=== PATIENT | female | born 1955 | race Caucasian/White ===

== ENCOUNTER 2016-05-03 14:18 | Emergency (ER) | payer OTHER ==
[2016-05-03] VITALS (8 sets, daily range): BP systolic 131–175; BP diastolic 69–94; PULSE 63–88; RESP 16–26; TEMP 98.1; O2SAT 97–100
[~2016-05-03] VITALS: Ht 147.3 cm; Wt 50.0 kg
--- NOTE | 2016-05-03 14:30 | PD ---
HPI Chief Complaint: Chest Pain Time Seen by Provider: 14:30 Travel History International Travel<30 days: No Contact w/Intl Traveler<30days: No Traveled to known affect area: No History of Present Illness HPI 60 year old female with PMH of COPD, hypertension, Brugada syndrome, implanted AICD 2012 presents to the ED for evaluation of 3 day history of intermittent, sharp left sided chest pain, radiating to the back, down the left arm and up to the left jaw. Associated with palpitations, shortness of breath, nausea and vomiting. Patient denies diaphoresis. Patient also complains of upper abdominal pain, episodic diarrhea. She denies fever, chills, melena, hematochezia. Denies dysuria, urinary urgency. Followed by Dr. Muse, cardiology. [facility] Social History Tobacco Use: Yes Allergies-Medications (Allergen,Severity, Reaction): Coded Allergies: Lyrica (Verified Allergy, Severe, Rash, 05/03/16) Tramadol (Verified Allergy, Severe, Rash, 05/03/16) Reported Meds & Prescriptions Reported Meds & Active Scripts Active Reported Ventolin Hfa 18 GM Inh (Albuterol Sulfate) 90 Mcg/Act Aer 2 Puff INH Q4H PRN Symbicort Inh (Budesonide/Formoterol Fumarate) 160-4.5 Mcg/Act Aero 2 Puff INH Q12HR Spiriva Handihaler (Tiotropium Inh) 18 Mcg Cap 18 Mcg INH DAILY 1 capsule = 18 mcg Requip (Ropinirole) 4 Mg Tab 4 Mg PO HS Hydroxyzine HCl 25 Mg Tab 25 Mg PO TID Amlodipine (Amlodipine Besylate) 2.5 Mg Tab 2.5 Mg PO DAILY Furosemide 20 Mg Tab 20 Mg PO DAILY Trazodone (Trazodone HCl) 50 Mg Tab 50 Mg PO HS Nortriptyline (Nortriptyline HCl) 25 Mg Cap 25 Mg PO HS Prednisone 10 Mg Tab 10 Mg PO DAILY Gabapentin 300 Mg Cap 300 Mg PO TID Lisinopril 10 Mg Tab 10 Mg PO DAILY Oxycodone-Acetaminophen 7.5-325 mg Tab 1 Tab PO Q6H PRN Review of Systems Except as stated in HPI: all other systems reviewed are Neg Physical Exam Narrative GENERAL: Well-nourished, well-developed thin female, some increased work of breathing. SKIN: Warm and dry. HEAD: Normocephalic. EYES: No scleral icterus. No injection or drainage. NECK: Supple, trachea midline. No JVD or lymphadenopathy. CARDIOVASCULAR: Regular rate and rhythm without murmurs, gallops, or rubs. 2+ DP and radial pulses bilaterally. RESPIRATORY: Breath sounds equal bilaterally. No accessory muscle use. GASTROINTESTINAL: Abdomen soft, non-tender, nondistended. Active bowel sounds. MUSCULOSKELETAL: No cyanosis, or edema. BACK: Nontender without obvious deformity. No CVA tenderness. Data Data Last Documented VS Vital Signs Date Time Temp Pulse Resp B/P Pulse Ox O2 Delivery O2 Flow Rate FiO2 05/03/16 19:28 64 20 174/80 99 05/03/16 17:47 Nasal Cannula 2 05/03/16 14:20 98.1 Orders Electrocardiogram (05/03/16 ) Basic Metabolic Panel (Bmp) (05/03/16 14:39) Ckmb (Isoenzyme) Profile (05/03/16 14:39) Complete Blood Count With Diff (05/03/16 14:39) D-Dimer (05/03/16 14:39) Magnesium (Mg) (05/03/16 14:39) Prothrombin Time / Inr (Pt) (05/03/16 14:39) Act Partial Throm Time (Ptt) (05/03/16 14:39) Troponin I (05/03/16 14:39) Chest, Single Ap (05/03/16 14:39) Ecg Monitoring (05/03/16 14:39) Bilateral Bp Monitoring (05/03/16 14:39) Iv Access Insert/Monitor (05/03/16 14:39) Oximetry (05/03/16 14:39) Aspirin Chew (Aspirin Chew) (05/03/16 14:45) Sodium Chloride 0.9% Flush (Ns Flush) (05/03/16 14:45) Nitroglycerin Sl (Nitrostat Sl) (05/03/16 14:45) Cta Thor Abd Aorta W Iv C W3d (05/03/16 ) Morphine Inj (Morphine Inj) (05/03/16 15:45) Iohexol 350 Inj (Omnipaque 350 Inj) (05/03/16 16:10) Ventilation & Perfusion Scan (05/03/16 16:58) Morphine Inj (Morphine Inj) (05/03/16 17:30) Admit Order (Ed Use Only) (05/03/16 19:41) Place In Observation (05/03/16 19:41) Activity Bed Rest With Brp (05/03/16 19:41) Vital Signs (Adult) Q4H (05/03/16 19:41) Cardiac Rhythm .As Directed (05/03/16:41) ^ Notify Dr: Other .PRN (05/03/16:41) ^ Notify Dr. Parameters (05/03/16:41) Resp Oxygen Nasal Cannula (05/03/16 ) Ckmb (Isoenzyme) Profile (05/03/16:41) Ckmb (Isoenzyme) Profile (05/03/16 22:41) Troponin I (05/03/16:41) Troponin I (05/03/16 22:41) Electrocardiogram (05/03/16:41) Electrocardiogram (05/03/16 22:41) ^ Obtain (05/03/16:41) Sodium Chloride 0.9% Flush (Ns Flush) (05/03/16 19:45) Sodium Chloride 0.9% Flush (Ns Flush) (05/03/16 21:00) Ux Developer Designer / Telemetry [email or web address].[email or web address] (05/03/16 19:41) Ibuprofen (Motrin) (05/03/16 20:45) Labs Laboratory Tests Test 05/03/16 15:20 White Blood Count 7.3 TH/MM3 Red Blood Count 4.58 MIL/MM3 Hemoglobin 13.1 GM/DL Hematocrit 38.9 % Mean Corpuscular Volume 84.9 FL Mean Corpuscular Hemoglobin 28.7 PG Mean Corpuscular Hemoglobin 33.8 % Concent Red Cell Distribution Width 13.0 % Platelet Count 254 TH/MM3 Mean Platelet Volume 9.6 FL Neutrophils (%) (Auto) 47.8 % Lymphocytes (%) (Auto) 45.0 % Monocytes (%) (Auto) 5.0 % Eosinophils (%) (Auto) 1.6 % Basophils (%) (Auto) 0.6 % Neutrophils # (Auto) 3.5 TH/MM3 Lymphocytes # (Auto) 3.3 TH/MM3 Monocytes # (Auto) 0.4 TH/MM3 Eosinophils # (Auto) 0.1 TH/MM3 Basophils # (Auto) 0.0 TH/MM3 CBC Comment DIFF FINAL Differential Comment Prothrombin Time 10.5 SEC Prothromb Time International 1.0 RATIO Ratio Activated Partial 25.7 SEC Thromboplast Time D-Dimer Quantitative (PE/DVT) 0.61 MG/L FEU Sodium Level 139 MEQ/L Potassium Level 3.9 MEQ/L Chloride Level 102 MEQ/L Carbon Dioxide Level 30.3 MEQ/L Anion Gap 7 MEQ/L Blood Urea Nitrogen 10 MG/DL Creatinine 0.88 MG/DL Estimat Glomerular Filtration 66 ML/MIN Rate Random Glucose 111 MG/DL Calcium Level 9.2 MG/DL Magnesium Level 2.1 MG/DL Total Creatine Kinase 83 U/L Troponin I LESS THAN 0.02 NG/ML MDM Medical Decision Making Medical Screen Exam Complete: Yes Emergency Medical Condition: Yes Interpretation(s) EKG rate 76, sinus rhythm. Right bundle ethan block. ST elevations with coving in V1, V2. No reciprocal changes. Reviewed by Dr. Mehta. Differential Diagnosis ACS versus PE versus aortic dissection versus pneumonia versus anemia versus electrolyte abnormality versus chest pain versus other Narrative Course 60 year old female with PMH of Brugada syndrome, implanted AICD 2012 presents to the ED for evaluation of 3 day history of intermittent, sharp left sided chest pain, radiating to the back, down the left arm and up to the left jaw. Associated with palpitations, shortness of breath, nausea and vomiting. Patient denies diaphoresis. Patient also complains of upper abdominal pain, episodic diarrhea. She denies fever, chills, melena, hematochezia, dysuria, urinary urgency. Followed by Dr. Muse, cardiology. Vitals reviewed. The patient is hypertensive on presentation. She does appear short of breath, though sats remain 95-100%. Physical exam reveals a petite female, some increased work of breathing. Chest is clear to auscultation bilaterally. Abdomen soft, mildly tender in the epigastric area. Equal pulses in the extremities. No lower extremity edema. No CVA tenderness. IV was established. Patient was placed on continuous monitoring, administered ASA, nitroglycerin. No improvement of symptoms. Administered 2 mg morphine. No nausea or vomiting during the course of her workup. CBC: WBC 7.3. Hemoglobin 13.1. INR 1.0. D-dimer 0.61. CMP: Unremarkable. Cardiac enzymes negative. Chest x-ray, pacer lead overlies the right ventricle, no focal, consolidation or significant effusion per radiology read. CTA thoracoabdominal: Negative for thoracic or abdominal aneurysm or dissection per radiology read. VQ scan: Low probability PE per radiology read. Dr. Mehta also evaluated the patient and we discussed her history, workup and plan of care. I spoke with registration. The patient does have several previous visits have not been merged. They can be accessed with . Discussed plan with the patient who is agreeable to the plan of care. Review of the record reveals no previous cardiac workup. We'll admit the patient to the chest pain center for serial cardiac enzymes and EKGs. Please see their notes for disposition. Dr. Mehta spoke with the patient, patient changed her mind and is asking to be discharged. She states that she will follow up with her oven operator. Please see Dr. Mehta's note for more details. Rebecca Quevedo May 03, 2016 14:30
[2016-05-03] MEDS ORDERED: SODIUM CHLORIDE 0.9% FLUSH 5 ML FLUSH IVF PRN ×2 (14:45→19:45)
[2016-05-03] MEDS ORDERED: ASPIRIN 81 MG CHEW TAB PO ONE (14:45)
[2016-05-03] MEDS: NITROGLYCERIN 0.4 MG SL 25 TABS/BTL SL SCH ×2 (14:52→14:57)
[2016-05-03] MEDS ORDERED: PRED10 PO (15:02)
[2016-05-03] MEDS ORDERED: HYDR-3133 PO (15:02)
[2016-05-03] MEDS ORDERED: TRAZ50TA12 PO (15:02)
[2016-05-03] MEDS ORDERED: AMLO2.5T PO (15:02)
[2016-05-03] MEDS ORDERED: NORT25CA PO (15:02)
[2016-05-03] MEDS ORDERED: FURO20TA PO (15:02)
[2016-05-03] MEDS ORDERED: SPIRCAP INH (15:02)
[2016-05-03] MEDS ORDERED: GABA300C5 PO (15:02)
[2016-05-03] MEDS ORDERED: SYMB160A INH (15:02)
[2016-05-03] MEDS ORDERED: LISI10TA3 PO (15:02)
[2016-05-03] MEDS ORDERED: OXYC1TAB35 PO (15:02)
[2016-05-03] MEDS ORDERED: REQU4TAB3 PO (15:02)
[2016-05-03] MEDS ORDERED: VENTAER INH (15:03)
[2016-05-03 15:38] LABS: AUTOMATED NEUTROPHIL # 3.5 TH/MM3 (1.8-7.7); BASOPHIL % 0.6 % (0.0-2.0); EOSINOPHIL # 0.1 TH/MM3 (0-0.4); EOSINOPHIL % 1.6 % (0.0-4.0); HEMATOCRIT 38.9 % (35.0-46.0); HEMO FLAGS DIFF FINAL; LYMPHOCYTE # 3.3 TH/MM3 (1.0-4.8); MEAN CELL VOLUME 84.9 FL (80.0-100.0); MEAN CORPUSCULAR HEMOGLOBIN 28.7 PG (27.0-34.0); MEAN CORPUSCULAR HGB CONC 33.8 % (32.0-36.0); NEUT % 47.8 % (16.0-70.0); PLATELET COUNT 254 TH/MM3 (150-450); RED BLOOD COUNT 4.58 MIL/MM3 (4.00-5.30); WHITE BLOOD COUNT 7.3 TH/MM3 (4.0-11.0)
[2016-05-03] MEDS ORDERED: MORPHINE SULFATE 4 MG/ML INJ IV PUSH ONE ×2 (15:45→17:30)
[2016-05-03 15:54] LABS: ANION GAP 7 MEQ/L (5-15); BICARBONATE 30.3 MEQ/L (21.0-32.0); BLOOD UREA NITROGEN 10 MG/DL (7-18); CHLORIDE 102 MEQ/L (98-107); GLOMERULAR FILTRATION RATE 66 ML/MIN (>89); MAGNESIUM 2.1 MG/DL (1.5-2.5); POTASSIUM 3.9 MEQ/L (3.5-5.1); SODIUM (NA) 139 MEQ/L (136-145)
[2016-05-03 15:56] LABS: APTT (PATIENT) 25.7 SEC (24.3-30.1); PROTHROMBIN TIME - PATIENT 10.5 SEC (9.8-11.6)
[2016-05-03 16:01] LABS: CREATINE KINASE 83 U/L (26-192)
[2016-05-03] MEDS ORDERED: IOHEXOL 350 MG/ML 10 ML VIAL (for RAD DIAG) IV ONE (16:10)
--- NOTE | 2016-05-03 16:15 | RADRPT ---
EXAM DATE/TIME: 05/03/2016 14:53 [facility] COMPARISON: No previous studies available for comparison. INDICATIONS : Chest Pain MEDICAL HISTORY : Emphysema. Chronic obstructive pulmonary disease. SURGICAL HISTORY : Pacemaker. ENCOUNTER: Initial ACUITY: 1 day PAIN SCORE: 5/10 LOCATION: Bilateral chest FINDINGS: A single view of the chest demonstrates pacer lead tip projected over right ventricle. No focal conso lidation or significant effusion. No pneumothorax. Heart size normal. CONCLUSION: 1. Pacer lead overlies right ventricle. No focal consolidation or significant effusion. Jose Alberto MD on May 03, 2016 at 16:13 Board Certified Radiologist. This report was verified electronically.
--- NOTE | 2016-05-03 16:49 | RADRPT ---
EXAM DATE/TIME: 05/03/2016 16:03 [facility] COMPARISON: No previous studies available for comparison. INDICATIONS : Sharp chest pain radiating to back for 3 days; evaluate for aortic dissection. IV CONTRAST: 75 cc Omnipaque 350 (iohexol) IV RADIATION DOSE: 3.57 CTDIvol (mGy) MEDICAL HISTORY : Cerebrovascular disease. Hypertension. Carcinoma, breast.Brugada Syndrome SURGICAL HISTORY : Pacemaker. Cholecystectomy.Mastectomy ENCOUNTER: Initial ACUITY: 3 days PAIN SCALE: 5/10 LOCATION: chest TECHNIQUE: Volumetric scanning was performed using a multi-row detector CT scanner. The data was post processed with a variety of visualization algorithms including full volume maximum intensity projection, multi -planar sliding thin slab reformation, curved planar reformation, and surface rendering techniques. Using automated exposure control and adjustment of the mA and/or kV according to patient size, radiat ion dose was kept as low as reasonably achievable to obtain optimal diagnostic quality images. FINDINGS: Examination negative for aortic dissection or aneurysm. There is mild atherosclerosis in the aorta an d branches. There is mild emphysema in the upper lungs. No consolidation. No effusion. No adenopathy. Pacer lead tip in right ventricle. No acute findings identified within the abdomen pelvis. There is mild constipation. CONCLUSION: 1. Negative for thoracic or abdominal dissection or aneurysm. 2. Mild constipation. Mild emphysema. No acute findings. Pacer lead tip in right ventricle. Jose Alberto MD on May 03, 2016 at 16:42 Board Certified Radiologist. This report was verified electronically.
--- NOTE | 2016-05-03 19:17 | RADRPT ---
EXAM DATE/TIME: 05/03/2016 18:29 [facility] COMPARISON: No previous studies available for comparison. INDICATIONS : Shortness of breath and chest pain for 3 days. DOSE: 8.1 mCi Tc99m MAA IV 1.7 mCi Tc99m DTPA aerosol MEDICAL HISTORY : Carcinoma, breast. Hypertension. SURGICAL HISTORY : Cholecystectomy. Mastectomy, right. Pacemaker. ENCOUNTER: Initial ACUITY: 3 days PAIN SCALE: 2/10 LOCATION: Bilateral chest TECHNIQUE: Following five minutes of tidal breathing of DTPA aerosol, planar images of the lungs were performed in eight projections. The patient was then injected with MAA, and eight-view perfusion scan was perf ormed. FINDINGS: There is a heterogeneous pattern of aerosol delivery to the periphery of both lungs. No focal ventil atory defects are seen. The perfusion lung scan demonstrates a homogenous pattern of uptake in both lungs. No segmental or s ubsegmental defects are seen. CONCLUSION: 1. Low probability for pulmonary embolus. Air trapping in the lungs. Jose Alberto MD on May 03, 2016 at 19:13 Board Certified Radiologist. This report was verified electronically.
--- NOTE | 2016-05-03 20:08 | PD ---
Physical Exam Narrative I, Dr. Mehta, have reviewed the advance practice practitioner's documentation and am in agreement, met with the patient face to face, made the diagnosis, and the medical decision making was done by me. *My assessment and Findings: 60yo F here with left sided chest pain with sob. Pt states chest pain radiates to the back and had new tingling in left leg. History was concerning for aortic dissection so CTA was completed which was negative for thoracic or abdominal dissection or aneurysm. Pt has Brugada syndrome s/p AICD. D-dimer was elevated so VQ scan was completed and showed low probability for pulmonary embolus. Troponin is negative. Pt given aspirin , morphine for chest pain. Pt will be admitted to chest pain center for serial EKG and cardiac enzyme to r/o ACS. Pt reevaluated at bedside and states that she does not want to stay any more. Pt changed her mind. Pt states she saw her escrow officer last in February and will call him tomorrow to let him know that she was in the ED. Pt's daughter will be with her and bring her home. She will bring her back immediately if anything changes. Return precautions given. Data Data Last Documented VS Vital Signs Date Time Temp Pulse Resp B/P Pulse Ox O2 Delivery O2 Flow Rate FiO2 05/03/16 19:28 64 20 174/80 99 05/03/16 17:47 Nasal Cannula 2 05/03/16 14:20 98.1 Orders Electrocardiogram (05/03/16 ) Basic Metabolic Panel (Bmp) (05/03/16 14:39) Ckmb (Isoenzyme) Profile (05/03/16 14:39) Complete Blood Count With Diff (05/03/16 14:39) D-Dimer (05/03/16 14:39) Magnesium (Mg) (05/03/16 14:39) Prothrombin Time / Inr (Pt) (05/03/16 14:39) Act Partial Throm Time (Ptt) (05/03/16 14:39) Troponin I (05/03/16 14:39) Chest, Single Ap (05/03/16 14:39) Ecg Monitoring (05/03/16 14:39) Bilateral Bp Monitoring (05/03/16 14:39) Iv Access Insert/Monitor (05/03/16 14:39) Oximetry (05/03/16 14:39) Aspirin Chew (Aspirin Chew) (05/03/16 14:45) Sodium Chloride 0.9% Flush (Ns Flush) (05/03/16 14:45) Nitroglycerin Sl (Nitrostat Sl) (05/03/16 14:45) Cta Thor Abd Aorta W Iv C W3d (05/03/16 ) Morphine Inj (Morphine Inj) (05/03/16 15:45) Iohexol 350 Inj (Omnipaque 350 Inj) (05/03/16 16:10) Ventilation & Perfusion Scan (05/03/16 16:58) Morphine Inj (Morphine Inj) (05/03/16 17:30) Resp Oxygen Nasal Cannula (05/03/16 ) Ckmb (Isoenzyme) Profile (05/03/16 19:41) Troponin I (05/03/16 19:41) Electrocardiogram (05/03/16 19:41) Ibuprofen (Motrin) (05/03/16 20:45) Labs Laboratory Tests Test 05/03/16 05/03/16 15:20 20:15 White Blood Count 7.3 TH/MM3 Red Blood Count 4.58 MIL/MM3 Hemoglobin 13.1 GM/DL Hematocrit 38.9 % Mean Corpuscular Volume 84.9 FL Mean Corpuscular Hemoglobin 28.7 PG Mean Corpuscular Hemoglobin 33.8 % Concent Red Cell Distribution Width 13.0 % Platelet Count 254 TH/MM3 Mean Platelet Volume 9.6 FL Neutrophils (%) (Auto) 47.8 % Lymphocytes (%) (Auto) 45.0 % Monocytes (%) (Auto) 5.0 % Eosinophils (%) (Auto) 1.6 % Basophils (%) (Auto) 0.6 % Neutrophils # (Auto) 3.5 TH/MM3 Lymphocytes # (Auto) 3.3 TH/MM3 Monocytes # (Auto) 0.4 TH/MM3 Eosinophils # (Auto) 0.1 TH/MM3 Basophils # (Auto) 0.0 TH/MM3 CBC Comment DIFF FINAL Differential Comment Prothrombin Time 10.5 SEC Prothromb Time International 1.0 RATIO Ratio Activated Partial 25.7 SEC Thromboplast Time D-Dimer Quantitative (PE/DVT) 0.61 MG/L FEU Sodium Level 139 MEQ/L Potassium Level 3.9 MEQ/L Chloride Level 102 MEQ/L Carbon Dioxide Level 30.3 MEQ/L Anion Gap 7 MEQ/L Blood Urea Nitrogen 10 MG/DL Creatinine 0.88 MG/DL Estimat Glomerular Filtration 66 ML/MIN Rate Random Glucose 111 MG/DL Calcium Level 9.2 MG/DL Magnesium Level 2.1 MG/DL Total Creatine Kinase 83 U/L 58 U/L Troponin I LESS THAN 0.02 LESS THAN 0.02 NG/ML NG/ML MDM Supervised Visit with MACARIO: Yes Interpretation(s) EKG: NSR 76bpm. [place] shaped ST elevation V1, V2. Pt has known brugada. No ST segment depression or reciprocal changes. Diagnosis Primary Impression: Chest pain Qualified Code: R07.9 - Chest pain, unspecified type Patient Instructions: General Instructions Departure Forms: Tests/Procedures Additional Instruction: Please return to the ED if you have chest pain, sob or any other concerning symptoms. Please call your escrow officer tomorrow to inform him you were in the ED. Med/Other Pt SpecificInfo: No Change to Meds Disposition: DISCHARGE HOME Condition: Stable Latrice Mehta DO May 03, 2016 20:08 Qualified Code: R07.9 - Chest pain, unspecified type Patient Instructions: General Instructions Departure Forms: Tests/Procedures Additional Instruction: Please return to the ED if you have chest pain, sob or any other concerning symptoms. Please call your escrow officer tomorrow to inform him you were in the ED. Med/Other Pt SpecificInfo: No Change to Meds Disposition: 01 DISCHARGE HOME Condition: Stable Latrice Mehta DO May 03, 2016 20:08
[2016-05-03] MEDS ORDERED: IBUPROFEN 600 MG TAB PO ONE (20:45)
[2016-05-03] MEDS ORDERED: SODIUM CHLORIDE 0.9% FLUSH 5 ML FLUSH IVF SCH (21:00)
[2016-05-03 21:30] LABS: CREATINE KINASE 58 U/L (26-192)
--- NOTE | 2016-05-04 12:31 | EKG ---
Date Performed: 05/03/2016 Time Performed: 14:39:50 PTAGE: 60 years EKG: Sinus rhythm RIGHT BUNDLE BRANCH BLOCK LEFT ANTERIOR FASCICULAR BLOCK POSSIBLE SEPTAL MYOCARDIAL INFARCTION Leads V1 and V2 are atypical for standard Right bundle branch block, would consider Type-1 Brugada NO PREVIOUS TRACING DOCTOR: Stephen Bansal Interpretating Date/Time 05/04/2016 12:29:27
--- NOTE | 2016-05-04 12:40 | EKG ---
Date Performed: 05/03/2016 Time Performed: 20:15:00 PTAGE: 60 years EKG: SINUS BRADYCARDIA RIGHT BUNDLE BRANCH BLOCK LEFT ANTERIOR FASCICULAR BLOCK POSSIBLE SEPTAL MYOCARDIAL INFARCTION Leads V1 and V2 are atypical for standard Right bundle branch block, would cons ider Type-1 Brugada ABNORMAL ECG PREVIOUS TRACING : 05/03/2016 14.39 DOCTOR: Stephen Bansal Interpretating Date/Time 05/04/2016 12:38:49
== END 2016-05-03 22:12 | disposition home or self-care (01) ==
LOC: NEPA 14:18
DX: R07.9 Chest pain, unspecified (principal); R94.31 Abnormal electrocardiogram [ECG] [EKG]; J44.9 Chronic obstructive pulmonary disease, unspecified; Z95.810 Presence of automatic (implantable) cardiac defibrillator; I10 Essential (primary) hypertension; Z72.0 Tobacco use
CPT/HCPCS: 71010; 71275; 74174; 78582; 80048; 82550; 83735; 84484; 85025; 85379; 85610; 85730; 93005; 96374; 96376; 99285; A9540; A9567; J2270; Q9967

== ENCOUNTER 2016-10-10 23:55 | Observation (INO) | payer OTHER ==
[~2016-10-10] VITALS: Ht 147.3 cm; Wt 43.0 kg
[~2016-10-10 23:55] MED LIST: AMLO2.5T PO; FURO20TA PO; GABA300C5 PO; HYDR-3133 PO; LISI10TA3 PO; NORT25CA PO; OXYC1TAB35 PO; PRED10 PO; REQU4TAB3 PO; SPIRCAP INH; SYMB160A INH; TRAZ50TA12 PO; VENTAER INH
[2016-10-10 23:57] VITALS: BP 174/78; PULSE 78; RESP 18; TEMP 98.1; O2SAT 99
[2016-10-11] VITALS (13 sets, daily range): BP systolic 95–133; BP diastolic 50–63; PULSE 49–79; RESP 16–18; TEMP 98–98.5; O2SAT 98–100
[2016-10-11] MEDS ORDERED: MORPHINE SULFATE 4 MG/ML INJ IV PUSH ONE
[2016-10-11] MEDS ORDERED: SODIUM CHLORIDE 0.9% FLUSH 10 ML FLUSH IVF PRN
[2016-10-11] MEDS ORDERED: ASPIRIN 325 MG TAB PO ONE
[2016-10-11] MEDS ORDERED: ASPI81CH3 CHEW (00:06)
[2016-10-11] MEDS ORDERED: ONDANSETRON HCL 4 MG/2 ML VIAL ONE (00:08)
[2016-10-11] MEDS: NITROGLYCERIN 0.4 MG SL 25 TABS/BTL SL SCH ×3 (00:10→00:18)
[2016-10-11 00:36] LABS: AUTOMATED NEUTROPHIL # 4.5 TH/MM3 (1.8-7.7); BASOPHIL % 0.6 % (0.0-2.0); EOSINOPHIL # 0.1 TH/MM3 (0-0.4); EOSINOPHIL % 1.8 % (0.0-4.0); HEMATOCRIT 37.8 % (35.0-46.0); HEMO FLAGS DIFF FINAL; LYMPH % 31.1 % (9.0-44.0); LYMPHOCYTE # 2.3 TH/MM3 (1.0-4.8); MEAN CELL VOLUME 86.5 FL (80.0-100.0); MEAN CORPUSCULAR HEMOGLOBIN 28.8 PG (27.0-34.0); MEAN CORPUSCULAR HGB CONC 33.3 % (32.0-36.0); MONO % 5.2 % (0.0-8.0); NEUT % 61.3 % (16.0-70.0); PLATELET COUNT 226 TH/MM3 (150-450); RED BLOOD COUNT 4.37 MIL/MM3 (4.00-5.30); RED CELL DISTRIBUTION WIDTH 13.5 % (11.6-17.2); WHITE BLOOD COUNT 7.4 TH/MM3 (4.0-11.0)
[2016-10-11 00:39] LABS: APTT (PATIENT) 25.2 SEC (24.3-30.1); PROTHROMBIN TIME - PATIENT 10.6 SEC (9.8-11.6)
[2016-10-11 01:03] LABS: ANION GAP 8 MEQ/L (5-15); BICARBONATE 29.2 MEQ/L (21.0-32.0); BLOOD UREA NITROGEN 11 MG/DL (7-18); CHLORIDE 106 MEQ/L (98-107); GLOMERULAR FILTRATION RATE 68 ML/MIN (>89); MAGNESIUM 1.9 MG/DL (1.5-2.5); POTASSIUM 3.5 MEQ/L (3.5-5.1); SODIUM (NA) 143 MEQ/L (136-145)
--- NOTE | 2016-10-11 01:06 | RADRPT ---
EXAM DATE/TIME: 10/11/2016 00:16 [facility] COMPARISON: CHEST SINGLE AP, May 03, 2016, 14:53. INDICATIONS : Chest pain and shortness of breath. MEDICAL HISTORY : Carcinoma, breast. Hypertension Chronic obstructive pulmonary disease. SURGICAL HISTORY : Pacemaker. ENCOUNTER: Initial ACUITY: 1 day PAIN SCORE: 10/10 LOCATION: Bilateral chest FINDINGS: Pacemaker device is noted with control pack over the left chest. Lungs are focally clear. No pleural effusion suspected. Cardiomediastinal contours are stable and satisfactory. CONCLUSION: No acute disease Ambrocio Luther MD on October 11, 2016 at 1:04 Board Certified Radiologist. This report was verified electronically.
[2016-10-11 01:16] LABS: CREATINE KINASE 68 U/L (26-192)
--- NOTE | 2016-10-11 01:41 | PD ---
HPI Chief Complaint: Chest Pain Time Seen by Provider: 23:58 Travel History International Travel<30 days: No Contact w/Intl Traveler<30days: No Traveled to known affect area: No History of Present Illness HPI 61-year-old female complains of chest pain intermittently for about 16 hours. This started at 4 AM yesterday. She states it's a 10 over 10. She reports she has a history of Brugada syndrome. She reports her father had a history of coronary artery disease. The patient smokes. She has hypertension. She has a history of cardiac catheterization and reports she has a stent. Location retrocardiac. There is radiation to the back. PFSH Past Medical History Arthritis: Yes (RA) Cancer: Yes (BREAST) Cardiac Catheterization: Yes Chest Pain: Yes Cerebrovascular Accident: Yes (TIA) Diminished Hearing: No Hypertension: Yes Implanted Vascular Access Dvce: Yes ([employer], MODEL [id number]) Tetanus Vaccination: Unknown Influenza Vaccination: Yes Past Surgical History Cardiac Surgery: Yes (PACEMAKER) Cholecystectomy: Yes Mastectomy: Yes (RIGHT) Social History Alcohol Use: No Tobacco Use: Yes Substance Use: No Allergies-Medications (Allergen,Severity, Reaction): Coded Allergies: Lyrica (Verified Allergy, Severe, Rash, 10/10/16) Tramadol (Verified Allergy, Severe, Rash, 10/10/16) Reported Meds & Prescriptions Reported Meds & Active Scripts Active Reported Aspirin 81 Low Dose (Aspirin) 81 Mg Chew 81 Mg CHEW DAILY Ventolin Hfa 18 GM Inh (Albuterol Sulfate) 90 Mcg/Act Aer 2 Puff INH Q4H PRN Symbicort Inh (Budesonide/Formoterol Fumarate) 160-4.5 Mcg/Act Aero 2 Puff INH Q12HR Spiriva Handihaler (Tiotropium Inh) 18 Mcg Cap 18 Mcg INH DAILY 1 capsule = 18 mcg Requip (Ropinirole) 4 Mg Tab 4 Mg PO HS Hydroxyzine HCl 25 Mg Tab 25 Mg PO TID Amlodipine (Amlodipine Besylate) 2.5 Mg Tab 2.5 Mg PO DAILY Trazodone (Trazodone HCl) 50 Mg Tab 50 Mg PO HS Nortriptyline (Nortriptyline HCl) 25 Mg Cap 25 Mg PO HS Gabapentin 300 Mg Cap 300 Mg PO TID Lisinopril 10 Mg Tab 10 Mg PO DAILY Oxycodone-Acetaminophen 7.5-325 mg Tab 1 Tab PO Q6H PRN Review of Systems Except as stated in HPI: all other systems reviewed are Neg General / Constitutional: No: Fever Physical Exam Narrative GENERAL: 61-year-old female mild distress secondary to pain and/or anxiety SKIN: Focused skin assessment warm/dry. HEAD: Atraumatic. Normocephalic. EYES: Pupils equal and round. No scleral icterus. No injection or drainage. ENT: No nasal bleeding or discharge. Mucous membranes pink and moist. NECK: Trachea midline. No JVD. CARDIOVASCULAR: Regular rate and rhythm. No murmur appreciated. RESPIRATORY: No accessory muscle use. Clear to auscultation. Breath sounds equal bilaterally. GASTROINTESTINAL: Abdomen soft, non-tender, nondistended. Hepatic and splenic margins not palpable. MUSCULOSKELETAL: No obvious deformities. No clubbing. No cyanosis. No edema. NEUROLOGICAL: Awake and alert. No obvious cranial nerve deficits. Motor grossly within normal limits. Normal speech. PSYCHIATRIC: Appropriate mood and affect; insight and judgment normal. Data Data Last Documented VS Vital Signs Date Time Temp Pulse Resp B/P Pulse Ox O2 Delivery O2 Flow Rate FiO2 10/11/16 02:00 64 16 113/57 99 Nasal Cannula 2 10/10/16 23:57 98.1 Vital signs reviewed Orders Electrocardiogram (10/10/16 23:58) Basic Metabolic Panel (Bmp) (10/10/16 23:58) Ckmb (Isoenzyme) Profile (10/10/16 23:58) Complete Blood Count With Diff (10/10/16 23:58) Magnesium (Mg) (10/10/16 23:58) Prothrombin Time / Inr (Pt) (10/10/16 23:58) Act Partial Throm Time (Ptt) (10/10/16 23:58) Troponin I (10/10/16 23:58) Chest, Single Ap (10/10/16 23:58) Ecg Monitoring (10/10/16 23:58) Bilateral Bp Monitoring (10/10/16 23:58) Iv Access Insert/Monitor (10/10/16 23:58) Oximetry (10/10/16 23:58) Oxygen Administration (10/10/16 23:58) Aspirin (Aspirin) (10/11/16 00:00) Morphine Inj (Morphine Inj) (10/11/16 00:00) Sodium Chloride 0.9% Flush (Ns Flush) (10/11/16 00:00) Nitroglycerin Sl (Nitrostat Sl) (10/11/16 00:00) Sodium Chlorid 0.9% 500 Ml Inj (Ns 500 M (10/11/16 00:00) Ondansetron Inj (Zofran Inj) (10/11/16 00:08) Ondansetron Odt (Zofran Odt) (10/11/16 01:45) Ondansetron Inj (Zofran Inj) (10/11/16 02:00) Metoprolol Tartrate (Lopressor) (10/11/16 02:00) Activity Bed Rest With Brp (10/11/16 02:29) Vital Signs (Adult) Q4H (10/11/16 02:29) Cardiac Rhythm .As Directed (10/11/16 02:29) Notify Dr: Other .PRN (10/11/16 02:29) Notify DrTino Parameters (10/11/16 02:29) Resp Oxygen Nasal Cannula (10/11/16 ) Ckmb (Isoenzyme) Profile (10/11/16 02:29) Ckmb (Isoenzyme) Profile (10/11/16 05:29) Troponin I (10/11/16 02:29) Troponin I (10/11/16 05:29) Electrocardiogram (10/11/16 02:29) Electrocardiogram (10/11/16 05:29) ^ Obtain (10/11/16 02:29) Sodium Chloride 0.9% Flush (Ns Flush) (10/11/16 02:30) Sodium Chloride 0.9% Flush (Ns Flush) (10/11/16 09:00) Acetaminophen (Tylenol) (10/11/16 02:30) Acetamin-Hydrocod 325-7.5 Mg ([place] 7.5 (10/11/16 02:30) Morphine Inj (Morphine Inj) (10/11/16 02:30) Nitroglycerin Sl (Nitrostat Sl) (10/11/16 02:30) Aspirin Chew (Aspirin Chew) (10/11/16 02:30) Aspirin (Aspirin) (10/11/16 09:00) Temazepam (Restoril) (10/11/16 02:30) Alprazolam (Xanax) (10/11/16 02:30) Variety Saw Operator / Telemetry BARBER.Q8H (10/11/16 02:29) Admit Order (Ed Use Only) (10/11/16 02:29) Labs Laboratory Tests Test 10/11/16 00:00 White Blood Count 7.4 TH/MM3 Red Blood Count 4.37 MIL/MM3 Hemoglobin 12.6 GM/DL Hematocrit 37.8 % Mean Corpuscular Volume 86.5 FL Mean Corpuscular Hemoglobin 28.8 PG Mean Corpuscular Hemoglobin 33.3 % Concent Red Cell Distribution Width 13.5 % Platelet Count 226 TH/MM3 Mean Platelet Volume 9.8 FL Neutrophils (%) (Auto) 61.3 % Lymphocytes (%) (Auto) 31.1 % Monocytes (%) (Auto) 5.2 % Eosinophils (%) (Auto) 1.8 % Basophils (%) (Auto) 0.6 % Neutrophils # (Auto) 4.5 TH/MM3 Lymphocytes # (Auto) 2.3 TH/MM3 Monocytes # (Auto) 0.4 TH/MM3 Eosinophils # (Auto) 0.1 TH/MM3 Basophils # (Auto) 0.0 TH/MM3 CBC Comment DIFF FINAL Differential Comment Prothrombin Time 10.6 SEC Prothromb Time International 1.0 RATIO Ratio Activated Partial 25.2 SEC Thromboplast Time Sodium Level 143 MEQ/L Potassium Level 3.5 MEQ/L Chloride Level 106 MEQ/L Carbon Dioxide Level 29.2 MEQ/L Anion Gap 8 MEQ/L Blood Urea Nitrogen 11 MG/DL Creatinine 0.85 MG/DL Estimat Glomerular Filtration 68 ML/MIN Rate Random Glucose 218 MG/DL Calcium Level 8.5 MG/DL Magnesium Level 1.9 MG/DL Total Creatine Kinase 68 U/L Troponin I LESS THAN 0.02 NG/ML MDM Medical Decision Making Medical Screen Exam Complete: Yes Emergency Medical Condition: Yes Medical Record Reviewed: Yes Differential Diagnosis NSTEMI, unstable angina, coronary vasospasm, PE, PTX, aortic dissection, pericarditis, myocarditis, endocarditis, PNA, esophageal disease, aneurysm, musculoskeletal etiologies, anxiety, cocaine/sympathomimetic abuse Narrative Course CBC & BMP Diagram 10/11/16 00:00 EKG reveals a sinus rhythm with ST elevations in V1 and V2 morphology is consistent with a Brugada type I syndrome Troponin is less than 0.02 Repeat troponin is less than 0.02 In this scenario it is considered quite unlikely that the patient actually has occlusive coronary disease. Review of prior EKGs reveals a very similar morphology. Patient will be admitted to the chest pain center for continuation of the chest pain evaluation. Pt follows with Dr Benitez of cardiology. Diagnosis Primary Impression: Chest pain Qualified Code: R07.9 - Chest pain, unspecified type Additional Impression: Brugada syndrome Admitting Information Admitting Physician Requests: Norberto Azevedo MD Oct 11, 2016 01:41
[2016-10-11] MEDS ORDERED: ONDANSETRON ODT 4 MG TAB PO ONE (01:45)
[2016-10-11] MEDS ORDERED: ONDANSETRON HCL 4 MG/2 ML VIAL IV PUSH ONE (02:00)
[2016-10-11] MEDS ORDERED: METOPROLOL TARTRATE 25 MG TAB PO ONE (02:00)
[2016-10-11] MEDS ORDERED: ASPIRIN 81 MG CHEW TAB PO ONE (02:30)
[2016-10-11] MEDS ORDERED: ACETAMINOPHEN 500 MG CPLT PO PRN (02:30)
[2016-10-11] MEDS ORDERED: SODIUM CHLORIDE 0.9% FLUSH 10 ML FLUSH IV FLUSH PRN (02:30)
[2016-10-11] MEDS ORDERED: TEMAZEPAM 15 MG CAP PO PRN (02:30)
[2016-10-11] MEDS ORDERED: ACETAMINOPHEN/HYDROcodone 325 MG/7.5 MG TAB PO PRN (02:30)
[2016-10-11] MEDS ORDERED: ALPRAZolam 0.25 MG TAB PO PRN (02:30)
[2016-10-11] MEDS ORDERED: NITROGLYCERIN 0.4 MG SL 25 TABS/BTL SL PRN (02:30)
[2016-10-11 03:50] LABS: CREATINE KINASE 54 U/L (26-192)
[2016-10-11] MEDS: MORPHINE SULFATE 4 MG/ML INJ IV PRN ×2 (04:32→08:50)
[2016-10-11 06:43] LABS: CREATINE KINASE 49 U/L (26-192)
[2016-10-11] MEDS ORDERED: PILL SPLITTER OTHER PRN (08:30)
[2016-10-11] MEDS ORDERED: LISINOPRIL 10 MG TAB PO SCH (09:00)
[2016-10-11] MEDS ORDERED: amLODIPine BESYLATE 5 MG TAB PO SCH (09:00)
[2016-10-11] MEDS ORDERED: RESP: ALBUTEROL 2.5 MG/IPRATROPIUM 0.5 MG NEB (PRN) INH (09:00)
[2016-10-11] MEDS ORDERED: ASPIRIN 325 MG TAB PO SCH (09:00)
[2016-10-11] MEDS ORDERED: SODIUM CHLORIDE 0.9% FLUSH 10 ML FLUSH IV FLUSH SCH (09:00)
[2016-10-11] MEDS ORDERED: BUDESONIDE-FORMOTEROL 160/4.5 MCG INHALER INH SCH (09:00)
[2016-10-11] MEDS ORDERED: SODIUM CHLORID 0.9% 500 ML INJ 500 ML IV ONE ×2 (09:45)
[2016-10-11] MEDS: GABAPENTIN 300 MG CAP PO SCH ×2 (10:23→13:07)
[2016-10-11] MEDS: hydrOXYzine HCL 25 MG TAB PO SCH ×2 (10:23→13:07)
--- NOTE | 2016-10-11 12:03 | HHI.HP ---
[facility] Primary Care Physician Cornell Franks MD Chief Complaint Chest pain History of Present Illness This is a 61-year-old female with stated history of Brugada syndrome that presents to ED to evaluate chest discomfort. Also of note, patient has other records while going by the name of OWEN ZAPATA. She states that she began having a discomfort in the center of her chest yesterday morning around 4: 00. It is still there now. Discomfort is been there for greater than 24 hours. Found nothing really to worsen or improve. States she was short of breath, nauseous, and diaphoretic with it. She states that she has been following Dr. Benitez locally the last 4 months. She states that 3 months ago she had a chemical stress test and 2-D echo that were both normal. She has had cardiac catheterizations but states they were performed in [place] where she also was diagnosed with Brugada syndrome. Patient states that she had tachy -arrhythmias requiring cardioversions. She also states that she has had cardiac arrest. She states she had a cardiac catheterization [place] but does not really know the results of it. Review of Systems General: Patient denies fevers, chills recent, and recent travel HEENT: Patient denies headache, sore throat, difficulty swallowing. Cardiovascular: Has the chest discomfort as mentioned above. Denies sensation of heart beating rapidly or irregularly. No syncope. She has been diaphoretic. Respiratory: She has been short of breath. Denies inspirational chest discomfort. Denies coughing wheezing or hemoptysis. GI: She has had some nausea. Patient denies vomiting, diarrhea, abdominal pain , bloody stools. Musculoskeletal: Patient denies joint pain or edema. Denies calf pain or edema. Neurovascular: Patient denies numbness, tingling, weakness in extremities. Denies headache. Endocrine: Denies polyuria and polydipsia. Hematologic: Denies easy bruising. Skin: Denies rash or itching. Past Family Social History Allergies: Coded Allergies: Lyrica (Verified Allergy, Severe, Rash, 10/10/16) Tramadol (Verified Allergy, Severe, Rash, 10/10/16) Past Medical History States that she has Brugada syndrome status post defibrillator. Hypertension, hyperlipidemia, restless leg syndrome, COPD. Denies diabetes. Really not sure of coronary artery disease. Past Surgical History States she has had cardiac catheterizations. She has a defibrillator. Cholecystectomy. Reported Medications Reported Meds & Active Scripts Active Reported Aspirin 81 Low Dose (Aspirin) 81 Mg Chew 81 Mg CHEW DAILY Ventolin Hfa 18 GM Inh (Albuterol Sulfate) 90 Mcg/Act Aer 2 Puff INH Q4H PRN Symbicort Inh (Budesonide/Formoterol Fumarate) 160-4.5 Mcg/Act Aero 2 Puff INH Q12HR Spiriva Handihaler (Tiotropium Inh) 18 Mcg Cap 18 Mcg INH DAILY 1 capsule = 18 mcg Requip (Ropinirole) 4 Mg Tab 4 Mg PO HS Hydroxyzine HCl 25 Mg Tab 25 Mg PO TID Amlodipine (Amlodipine Besylate) 2.5 Mg Tab 2.5 Mg PO DAILY Trazodone (Trazodone HCl) 50 Mg Tab 50 Mg PO HS Nortriptyline (Nortriptyline HCl) 25 Mg Cap 25 Mg PO HS Gabapentin 300 Mg Cap 300 Mg PO TID Lisinopril 10 Mg Tab 10 Mg PO DAILY Oxycodone-Acetaminophen 7.5-325 mg Tab 1 Tab PO Q6H PRN Active Ordered Medications Current Medications Medications (Trade) Dose Ordered Sig/Rui Route Start Time Stop Time Status Last Admin (NS Flush) 2 ml UNSCH PRN IV FLUSH 10/11/16 02:30 (NS Flush) 2 ml BID IV FLUSH 10/11/16 09:00 10/11/16 08:51 (Tylenol) 500 mg Q4H PRN PO 10/11/16 02:30 ([place] 7.5-325 Mg) 1 tab Q4H PRN PO 10/11/16 02:30 (Morphine Inj) 2 mg Q4H PRN IV 10/11/16 02:30 10/11/16 08:50 (Nitrostat Sl) 0.4 mg Q5M PRN SL 10/11/16 02:30 (Aspirin) 325 mg DAILY PO 10/11/16 09:00 10/11/16 08:51 (Restoril) 15 mg HS PRN PO 10/11/16 02:30 (Xanax) 0.25 mg Q8H PRN PO 10/11/16 02:30 (Norvasc) 2.5 mg DAILY PO 10/11/16 09:00 (Symbicort 160-4.5 Inh) 2 puff Q12HR INH 10/11/16 09:00 10/11/16 10:23 (Neurontin) 300 mg TID PO 10/11/16 09:00 10/11/16 10:23 (Atarax) 25 mg TID PO 10/11/16 09:00 10/11/16 10:23 (Prinivil) 10 mg DAILY PO 10/11/16 09:00 (Pamelor) 25 mg HS PO 10/11/16 21:00 (Desyrel) 50 mg HS PO 10/11/16 21:00 (Requip) 4 mg HS PO 10/11/16 21:00 (Pill Splitter) 1 ea UNSCH PRN OTHER 10/11/16 08:30 Family History Really not sure of her family cardiac history. Social History Patient continues to smoke cigarettes. Denies alcohol or illicit drugs. Physical Exam Vital Signs Vital Signs Date Time Temp Pulse Resp B/P Pulse Ox O2 Delivery O2 Flow Rate FiO2 10/11/16 10:20 57 112/58 10/11/16 08:00 98.1 52 18 95/50 99 10/11/16 07:29 49 10/11/16 05:09 58 10/11/16 04:40 18 10/11/16 04:12 98.0 54 18 112/57 99 10/11/16 02:49 98 Nasal Cannula 2.00 10/11/16 02:00 64 16 113/57 99 Nasal Cannula 2 10/11/16 00:16 79 18 116/63 98 Nasal Cannula 2 10/11/16 00:00 99 Nasal Cannula 2 10/11/16 00:00 98 Room Air 10/10/16 23:57 98.1 78 18 174/78 99 Physical Exam GENERAL: This is a well-nourished, well-developed patient, in no apparent distress. Patient speaks in clear complete sentences. Patient is pleasant. HEENT: Head is atraumatic and normocephalic. Neck is supple without lymphadenopathy and trachea is midline. No JVD or carotid bruits. CARDIOVASCULAR: Regular rate and rhythm without murmurs, gallops, or rubs. RESPIRATORY: Clear to auscultation. Breath sounds equal bilaterally. No wheezes , rales, or rhonchi. Chest wall is tender. No use of accessory muscles. GASTROINTESTINAL: Abdomen is nontender, nondistended. Abdomen soft. No obvious pulsatile mass or bruit. No CVA tenderness. Strong femoral pulses bilaterally. Normal bowel sounds in all quadrants. MUSCULOSKELETAL: Patient is moving upper and lower extremities freely. No calf tenderness or edema, no Homans sign. Strong pulses in upper and lower extremities. NEUROLOGICAL: Patient is alert and oriented. Cranial nerves 2-12 are grossly intact. No focal deficits and speech is clear. SKIN: No rash and turgor is normal. Laboratory Laboratory Tests Test 10/11/16 10/11/16 10/11/16 00:00 03:00 06:00 White Blood Count 7.4 Red Blood Count 4.37 Hemoglobin 12.6 Hematocrit 37.8 Mean Corpuscular Volume 86.5 Mean Corpuscular Hemoglobin 28.8 Mean Corpuscular Hemoglobin 33.3 Concent Red Cell Distribution Width 13.5 Platelet Count 226 Mean Platelet Volume 9.8 Neutrophils (%) (Auto) 61.3 Lymphocytes (%) (Auto) 31.1 Monocytes (%) (Auto) 5.2 Eosinophils (%) (Auto) 1.8 Basophils (%) (Auto) 0.6 Neutrophils # (Auto) 4.5 Lymphocytes # (Auto) 2.3 Monocytes # (Auto) 0.4 Eosinophils # (Auto) 0.1 Basophils # (Auto) 0.0 CBC Comment DIFF FINAL Differential Comment Prothrombin Time 10.6 Prothromb Time International 1.0 Ratio Activated Partial 25.2 Thromboplast Time Sodium Level 143 Potassium Level 3.5 Chloride Level 106 Carbon Dioxide Level 29.2 Anion Gap 8 Blood Urea Nitrogen 11 Creatinine 0.85 Estimat Glomerular Filtration 68 Rate Random Glucose 218 Calcium Level 8.5 Magnesium Level 1.9 Total Creatine Kinase 68 54 49 Troponin I LESS THAN 0.02 LESS THAN 0.02 LESS THAN 0.02 Result Diagram: 10/11/16 0000 10/11/16 0000 Imaging Last 48 hours Impressions Chest X-Ray 10/10/16 0664 Signed Impressions: Service Date/Time: Tuesday, October 11, 2016 00:16 - CONCLUSION: No acute disease Ambrocio Luther MD Course EKGs have sinus rhythm. She has a right bundle branch block. Assessment and Plan Assessment and Plan * Chest pain: Patient states she has history of Brugada syndrome. States she has a supervisor metal placing that she follows and states that she had a normal stress test 2-3 months ago with her supervisor metal placing. She will be seen by Dr. Andujar of cardiology and the chest pain center. We are trying to get her records from [place]. Likely patient will be discharged home with instructions follow -up with her supervisor metal placing and her primary care physician. * Brugada syndrome: She has a fibular. She will need follow-up with her supervisor metal placing. * Diabetes: Patient will be covered with sliding scale insulin. She should resume her medication discharge. She needs to follow a diabetic diet. * Hypertension: Continue current medication. * Hyperlipidemia: Patient is chronic taking medication was. She needs discuss this with her physician. * Tobacco abuse: Patient has been counseled on importance of smoking cessation. Patient is stable this time. She is agreeable to this plan. Bo Mathew Oct 11, 2016 12:03
--- NOTE | 2016-10-11 13:54 | HHI.DCPOC ---
Discharge Care Plan Diagnosis: (1) Chest pain, atypical (2) CAD (coronary artery disease) (3) Brugada syndrome (4) Hypertension (5) Tobacco abuse Goals to Promote Your Health * To prevent worsening of your condition and complications * To maintain your health at the optimal level Directions to Meet Your Goals Take your medications as prescribed Follow your dietary instruction Follow activity as directed Keep your appointments as scheduled Take your immunizations and boosters as scheduled If your symptoms worsen call your PCP, if no PCP go to Urgent Care Center or Emergency Room Smoking is Dangerous to Your Health. Avoid second hand smoke Call the 24-hour hour crisis hotline for domestic abuse at Bo Mathew Oct 11, 2016 13:54
--- NOTE | 2016-10-11 15:04 | EKG ---
Date Performed: 10/11/2016 Time Performed: 06:01:18 PTAGE: 61 years EKG: SINUS BRADYCARDIA MARKED LEFT AXIS DEVIATION RIGHT BUNDLE BRANCH BLOCK ST changes suggest B rugada syndrome PREVIOUS TRACING : 10/11/2016 04.23 Since previous tracing, no significant change noted DOCTOR: Gaurav Andujar Interpretating Date/Time 10/11/2016 15:03:34
--- NOTE | 2016-10-11 15:10 | EKG ---
Date Performed: 10/11/2016 Time Performed: 04:23:20 PTAGE: 61 years EKG: Sinus rhythm MARKED LEFT AXIS DEVIATION RIGHT BUNDLE BRANCH BLOCK ST changes suggest Brugada syndrome INTERPRETAT ION BASED ON A DEFAULT AGE OF 40 YEARS PREVIOUS TRACING : 05/03/2016 20.15 Since previous tracing, no significant change noted DOCTOR: Gaurav Andujar Interpretating Date/Time 10/11/2016 15:08:45
--- NOTE | 2016-10-11 15:12 | EKG ---
Date Performed: 10/11/2016 Time Performed: 03:04:02 PTAGE: 61 years EKG: SINUS BRADYCARDIA BORDERLINE LEFT AXIS DEVIATION RIGHT BUNDLE BRANCH BLOCK ST changes sugge st Brugada syndrome PREVIOUS TRACING : 05/03/2016 20.15 Since previous tracing, no significant change noted DOCTOR: Gaurav Andujar Interpretating Date/Time 10/11/2016 15:10:38
--- NOTE | 2016-10-11 15:18 | EKG ---
Date Performed: 10/10/2016 Time Performed: 23:56:00 PTAGE: 61 years EKG: Sinus rhythm RIGHT BUNDLE BRANCH BLOCK LEFT ANTERIOR FASCICULAR BLOCK ST changes suggest Brugada syndrome NO PREVIOUS TRACING DOCTOR: Gaurav Andujar Interpretating Date/Time 10/11/2016 15:17:34
[2016-10-11] MEDS ORDERED: traZODone HCL 50 MG TAB PO SCH (21:00)
[2016-10-11] MEDS ORDERED: NORTRIPTYLINE HCL 25 MG CAP PO SCH (21:00)
--- NOTE | 2016-10-17 13:03 | MR ---
cc: NAYELI TYLER M.D. DATE 10/17/2016 PROCEDURE Fiberoptic bronchoscopy flexible REASON FOR BRONCHOSCOPY Hemoptysis, right lower lobe lung nodules PROCEDURE Fiberoptic bronchoscopy performed via LMA. Vocal cords intact. Trachea mildly hyperemic. Ruth sharp. Right mainstem bronchus, right upper, middle and lower lobes without obstruction or mass lesion. Thick mucous plugs seen and all removed. The left mainstem bronchus, left upper and lower lobes inspected. Thick mucous plugs again removed. No obstruction or mass lesion. Washings obtained from both sides of the tracheobronchial tree for routine TB, fungal culture as well as cytological exam. Bronchoscope then withdrawn introduced right lower lung lobe. Washings, brushings and cytological brush biopsies obtained for cytological exam. The procedure was very well tolerated. The patient transferred to recovery in stable condition. IMPRESSION 1. Moderate tracheobronchitis 2. Excess mucoid secretion and plugging. 3. No evidence of endobronchial obstruction or mass lesion. 4. Samples obtained as above. 5. The patient transferred to recovery in stable condition. Nayeli Tyler MD WWW/CARMELITA /9:53 AM /12:51 PM
== END 2016-10-11 16:10 | disposition home or self-care (01) ==
LOC: NEPE 23:55 → NEDA 10-11 02:31 → NEPGCP 10-11 04:05
PROVIDERS: ADMIT Internal Medicine Cardiovascular Disease; ATTEND Internal Medicine Cardiovascular Disease
DX: R07.89 Other chest pain (principal); R06.02 Shortness of breath; R11.0 Nausea; R61 Generalized hyperhidrosis; I10 Essential (primary) hypertension; J44.9 Chronic obstructive pulmonary disease, unspecified; M06.9 Rheumatoid arthritis, unspecified; I45.2 Bifascicular block; I25.10 Atherosclerotic heart disease of native coronary artery without angina pectoris; Z86.73 Personal history of transient ischemic attack (TIA), and cerebral infarction without residual deficits; Z95.0 Presence of cardiac pacemaker; Z79.82 Long term (current) use of aspirin; Z79.899 Other long term (current) drug therapy; Z82.49 Family history of ischemic heart disease and other diseases of the circulatory system; Z85.3 Personal history of malignant neoplasm of breast; Z95.5 Presence of coronary angioplasty implant and graft; G25.81 Restless legs syndrome; Z95.810 Presence of automatic (implantable) cardiac defibrillator; F17.210 Nicotine dependence, cigarettes, uncomplicated; Z71.6 Tobacco abuse counseling
CPT/HCPCS: 71010; 76937; 80048; 82550; 83735; 84484; 85025; 85610; 85730; 93005; 96361; 96374; 96375; 99285; G0378; J2270; J2405; J7040